=== PATIENT | male | born 1990 | race Caucasian/White ===

== ENCOUNTER 2025-06-10 11:44 | Emergency (ER) | payer BC, SELFPAY ==
[2025-06-10 11:52] VITALS: BP 158/90; PULSE 70; RESP 16; TEMP 36.9; O2SAT 98
--- NOTE | 2025-06-10 12:03 | EDNOTE_ITS ---
ED General RME/HPI General Chief complaint: Animal Bite Stated complaint: BIT BY DOG ON R) BUTTOCKS Time Seen by Provider: 06/10/25 12:01 Arrival date/time: 06/10/25 11:44 CC: Dog bite right buttock HPI patient was running as a regular runner, dog bit him in the buttock. Patient denies fever chills occurrence was approximately 30 minutes ago patient pain is 1-2 out of 10 scale. No other complaints patient is awake alert oriented. Related Data Previous Rx's ?Medication ?Instructions ?Recorded ciprofloxacin HCl 500 mg tablet 500 mg PO BID #14 tabs 04/28/19 (Cipro) hydrocodone 5 mg-acetaminophen 325 1 tab PO Q6H PRN pa in #20 tabs 04/28/19 mg tablet ([place]) amoxicillin 875 mg-potassium 1 tab PO BID #14 tabs clavulanate 125 mg tablet Allergies Allergy/AdvReac Type Severity Reaction Status Date / Time No Known Allergies Allergy Verified 06/10/25 11:47 Review of Systems Review of Systems Narrative Review of Systems: GEN: No fever, no chills, no weight loss EYES: No discharge, no visual changes, no pain HEENT: No ear pain, no congestion, no sore throat PULM: No shortness of breath, no cough, no congestion CV: No chest pain, no dyspnea on exertion, no palpitations GI: No nausea, no vomiting, no diarrhea, no pain, no constipation : No frequency, no urgency, no dysuria MUSC/SKEL: No joint pain, no back pain SKIN: No rash PSYCH: No hallucinations, no depression HEME/LYMPH: No easy bleeding or bruising tendencies NEURO: No weakness, no headache Past Medical History Past Medical History NEUROLOGIC: Negative Neurological Disorders or Seizures CARDIAC: Negative Cardiac Disorders or Congestive Heart Failure RESPIRATORY: Negative Chronic Obstructive Pulmonary Disease (COPD) GASTROINTESTINAL: Negative Gastrointestinal Disorders GENITOURINARY: Negative Genitourinary Disorders or Renal Disease MUSCULOSKELETAL: Negative Musculoskeletal Disorders ENDOCRINE: Negative Endocrine Disorders, Diabetes Mellitus Type 1 or Diabetes Mellitus Type 2 HEMATOLOGIC: Negative Blood Disorders OTHER HISTORY: Positive Chicken Pox; Negative Autoimmune Disease, Blood Transfusions or Anesthesia Reactions Family History FAMILY HISTORY: Positive Family Cardiac Disorders (FATHER) Social History SMOKING STATUS: Former smoker ED Exam Narrative Physical exam: [General: Not in any acute distress Head normocephalic HEENT: Within acceptable limits Neck is supple nontender Chest equal chest rise nontender to palpation Respiratory: Clear to auscultation no wheezes crackles or rubs CV: Rate rhythm is regular no murmurs rubs or clicks Abdomen is distended secondary to body habitus soft nontender no masses positive bowel sounds all 4 quadrants Back: No CVA tenderness no spinous process tenderness from cervical spine thoracic and lumbar spine Skin: Right buttock, there 2 partial-thickness abrasions and 2 small full- thickness abrasions without puncture wounds. No active bleeding at this time otherwise skin is intact no petechiae rash induration ulceration or crepitus Extremities: Moving all extremity against resistance cap refill less than 2 seconds neurosensory intact Neuro: Awake alert oriented x3 Glascow coma 15 no focal deficits] Course Quality Measures none Orders Category Date Time Status Dressing Care/Change NEEDED Care 06/10/25 12:03 Active Vital Signs Vital signs: Vital Signs Temperature 98.5 F 06/10/25 11:52 Pulse Rate 70 06/10/25 11:52 Respiratory Rate 16 06/10/25 11:52 Blood Pressure 158/90 H 06/10/25 11:52 Pulse Oximetry (%) 98 06/10/25 11:52 Oxygen Delivery Method Room Air 06/10/25 11:52 Discharge Plan Plan Patient Disposition: HOME (Self Care) Patient condition on transfer: Stable Prescriptions/Referrals Prescriptions/Med Rec: New amoxicillin-pot clavulanate 875-125 mg tablet 1 tab PO BID Qty: 14 0RF No Action hydrocodone-acetaminophen [[place]] 5-325 mg tablet 1 tab PO Q6H MDD 4 PRN (Reason: pain) Qty: 20 0RF ciprofloxacin HCl [Cipro] 500 mg tablet 500 mg PO BID Qty: 14 0RF Problem List Clinical Impression: Dog bite Patient/Caregiver Discharge Instructions Education Materials: ED Dog Bite Print Language: Slovenian Stand Alone Forms: Ele Award Info., Patient Portal Info Letter, Work/School Release PA/GENERAL PRODUCTION LABORER Supervising Physician PA/GENERAL PRODUCTION LABORER Supervising Physician: Saravanan sarmiento ENP [facility] Clinical Information Provided by: patient Medical Records reviewed [facility] Labs/Rad/Tests considered, not ordered None Chronic Illness/Social Conditions which may negatively complicate care or outcome(s)-explain: None or not applicable EKG EKG not done Labs Labs: none Imaging Imaging interpretation: none Medication Administration(s) none Diagnosis Differential Diagnosis ED Complaint MDM: Puncture wound dog bite animal bite
== END 2025-06-10 13:20 | disposition home or self-care (01) ==
PROVIDERS: Emergency Provider Emergency Medicine
DX: S30.810A Abrasion of lower back and pelvis, initial encounter (principal); W54.0XXA Bitten by dog, initial encounter
CPT/HCPCS: 99284

== ENCOUNTER 2025-06-11 16:49 | Emergency (ER) | payer BC, SELFPAY ==
[2025-06-11 16:55] VITALS: BP 149/90; PULSE 60; RESP 20; TEMP 36.7; O2SAT 98; BMI 24.4
--- NOTE | 2025-06-11 17:22 | PD.EDANIML ---
ED Animal Bite RME/HPI General Chief Complaint: Animal Bite Stated Complaint: BIT BY DOG; NO RECORD OF RABIES VACCINE ON DOG Time Seen by Provider: 06/11/25 16:58 Arrival date/time: 06/11/25 16:49 This is a case of 35-year-old male who had a dog bite on the left buttocks and was seen here yesterday which he was prescribed with Augmentin to prevent infection patient came back for rabies vaccine dog rabies vaccine is not up-to-date and for his tetanus shot no other concern noted Limitations: no limitations Related Data Previous Rx's ?Medication ?Instructions ?Recorded ciprofloxacin HCl 500 mg tablet 500 mg PO BID #14 tabs 04/28/19 (Cipro) hydrocodone 5 mg-acetaminophen 325 1 tab PO Q6H PRN pain #20 tabs 04/28/19 mg tablet ([place]) amoxicillin 875 mg-potassium 1 tab PO BID #14 tabs 06/10/25 clavulanate 125 mg tablet Allergies Allergy/AdvReac Type Severity Reaction Status Date / Time No Known Allergies Allergy Verified 06/11/25 16:52 Review of Systems Review of Systems Systems Reviewed: All systems reviewed, normal except as documented Constitutional Constitutional: Reports system reviewed and no additional complaints, except as documented and Reports as per HPI Cardiovascular Cardiovascular: Reports system reviewed and no additional complaints, except as documented and Reports as per HPI Respiratory Respiratory: Reports system reviewed and no additional complaints, except as documented and Reports as per HPI Gastrointestinal Gastrointestinal: Reports system reviewed and no additional complaints, except as documented and Reports as per HPI Musculoskeletal Musculoskeletal: Reports system reviewed and no additional complaints, except as documented and Reports as per HPI Neurologic Neurologic: Reports system reviewed and no additional complaints, except as documented and Reports as per HPI Past Medical History Past Medical History NEUROLOGIC: Negative Neurological Disorders or Seizures CARDIAC: Negative Cardiac Disorders or Congestive Heart Failure RESPIRATORY: Negative Chronic Obstructive Pulmonary Disease (COPD) GASTROINTESTINAL: Negative Gastrointestinal Disorders GENITOURINARY: Negative Genitourinary Disorders or Renal Disease MUSCULOSKELETAL: Negative Musculoskeletal Disorders ENDOCRINE: Negative Endocrine Disorders, Diabetes Mellitus Type 1 or Diabetes Mellitus Type 2 HEMATOLOGIC: Negative Blood Disorders OTHER HISTORY: Positive Chicken Pox; Negative Autoimmune Disease, Blood Transfusions or Anesthesia Reactions Family History FAMILY HISTORY: Positive Family Cardiac Disorders (FATHER) Social History SMOKING STATUS: Never smoker ED Exam General Limitations: Present no limitations General appearance: Present alert, in no apparent distress and other (Patient is awake alert oriented not in distress nontoxic looking well-hydrated well-nourished) Head Head exam: Present atraumatic, normocephalic and normal inspection Eye Eye exam: Present normal appearance, PERRL and EOMI ENT ENT exam: Present normal exam, normal oropharynx and mucous membranes moist Neck Neck exam: Present normal inspection, full ROM and trachea midline; Absent tenderness, meningismus or lymphadenopathy Chest Chest inspection: Present normal inspection and symmetric chest wall rise; Absent tenderness Respiratory Respiratory exam: Present normal lung sounds bilaterally; Absent respiratory distress, wheezes, stridor, accessory muscle use or prolonged expiratory phase Cardiovascular Cardiovascular exam: Present regular rate, normal rhythm and normal heart sounds; Absent bradycardia, tachycardia, irregular rhythm, systolic murmur or diastolic murmur Abdominal Exam Abdominal exam: Present soft and normal bowel sounds; Absent distention, tenderness, guarding, rebound, rigidity, diminished bowel sounds, hyperactive bowel sounds, hypoactive bowel sounds or organomegaly Extremities Exam Extremities exam: Present normal inspection and full ROM Back Exam Back exam: Present normal inspection and full ROM Neurological Exam Neurological exam: Present alert, oriented X3, CN II-XII intact, normal gait and reflexes normal; Absent motor sensory deficit Psychiatric Psychiatric exam: Present normal affect and normal mood Skin Skin exam: Present warm, dry, intact, normal color and other (Noted multiple punctured wound on the left buttocks with contusion no bleeding no abscess no cellulitis ) Course Quality Measures none Orders Category Date Time Status Rabies Immune Globulin/Thimer [Kedrab Inj] Med 06/11/25 17:04 Discontinued 1,500 iu IM X1 ONE Rabies Vaccine (Pcec)/Pf [Rabavert Rabies Vacc w/ Med 06/11/25 17:04 Discontinued Diluent] 2.5 unit IM .ONCE ONE TET,DIP/PERT AC (Adult)-Tdap [Boostrix Adult (Tdap) Med 06/11/25 17:04 Discontinued Vacc] 0.5 ml IMI .ONCE ONE Vital Signs Vital signs: Vital Signs Temperature 98.1 F 06/11/25 16:55 Pulse Rate 60 06/11/25 16:55 Respiratory Rate 20 06/11/25 16:55 Blood Pressure 149/90 H 06/11/25 16:55 Pulse Oximetry (%) 98 06/11/25 16:55 Oxygen Delivery Method Room Air 09/29/25 16:55 Oxygen saturation is 98% in room air normal Animal Bite MDM Narrative MDM Narrative:: This is a case of 35-year-old male who had a dog bite on the left buttocks and was seen here yesterday which he was prescribed with Augmentin to prevent infection patient came back for rabies vaccine dog rabies vaccine is not up-to-date and for his tetanus shot no other concern noted physical examination patient is awake alert oriented not in distress nontoxic looking well-hydrated well-nourished patient noted to have a 3 x 3 cm contusion on the left buttock with multiple punctured wound no bleeding no signs and symptoms of infection no redness no abscess no cellulitis spoke to the pharmacy regarding the rabies vaccine patient was given rabies immunoglobulin and rabies vaccine patient was also given tetanus shot patient was advised to return in the emergency room on the and for the next rabies vaccine patient will continue the Augmentin that was prescribed yesterday patient will follow-up with PCP in 2 days for reevaluation and for any signs and symptoms of infection worsening symptoms return precaution in the ER was advised Patient was discharged with comfortable condition walking with stable gait. Patient verbalized no further complains explained diagnosis and answered patient question. Patient is comfortable with the proposed management plan including the need to follow up with his/her primary care physician and any specialist if applicable Discussed patient for any urgent condition or worsening sx, He/She needed to go to emergency room immediately or call 911. Patient acknowledge the responsibility to follow up as instructed and to monitor her/his symptoms. For any persistence of the symptoms for more than 3-5 days return precaution advised. Discussed the result of the test and was given printed discharge instruction Patient data External records reviewed:: [facility] previous records Clinical information provided by:: patient Social determinants that could affect healthcare access:: none Patient has the following chronic illnesses:: None How is presenting disease/condition affected by chronic disease/condition?: no chronic disease Evaluation data The following diagnostics were reviewed and interpreted by me:: other (specify) (None) Lab and/or radiology exams considered but not ordered:: None Interpretation Summary: None Medications / Prescriptions Medications or Prescriptions considered but not ordered:: Given Medication administrations:: Medication Administration History Discontinued Medications Diphtheria/Tetanus/Acell Pertussis (Diphth,Pertuss(Acell),Tet Vac 0.5 Ml Syr- Adult) 0.5 ml IMi .ONCE ONE Stop: 06/11/25 17:05 Rabies Immune Globulin (Rabies Immune Globulin 150 Iu/Ml Vial 10ml) 1,500 iu IM X1 ONE Stop: 06/11/25 17:05 Rabies Vaccine Chick Embryo Cell (Rabies Vaccine (Pcec)/Pf 2.5 Unit/Ml Vial) 2.5 unit IM .ONCE ONE Stop: 06/11/25 17:05 Given Consultations Consultation(s) initiated? (list below): No Diagnosis Differential diagnosis animal bite: bite by animal and dog bite Most likely diagnosis given after review of the tests above:: Dog bite multiple puncture wound left buttocks with contusion Admission Indicated Admission indicated?: not indicated Explain why admission is indicated or not indicated:: Not indicated Admission Request Was there a request for admission?: No Admission Attestation Admission request attestation: Not indicated Disposition Plan Disposition Plan: Discharge Discharge Attestation Discharge Attestation: The patient and all family members were given an opportunity to ask questions and understood the discharge instructions. Discharge instructions specifically effects, indications for sooner follow up or return to the emergency department, and the expected course of current diagnosis. Patient condition: Stable Discharge Plan Plan Patient Disposition: HOME (Self Care) Patient condition on transfer: Stable Prescriptions/Referrals Prescriptions/Med Rec: No Action hydrocodone-acetaminophen [[place]] 5-325 mg tablet 1 tab PO Q6H MDD 4 PRN (Reason: pain) Qty: 20 0RF ciprofloxacin HCl [Cipro] 500 mg tablet 500 mg PO BID Qty: 14 0RF amoxicillin-pot clavulanate 875-125 mg tablet 1 tab PO BID Qty: 14 0RF Problem List Clinical Impression: Dog bite, Contusion of left buttock, Multiple puncture wounds Patient/Caregiver Discharge Instructions Education Materials: Bruises (Contusions), ED Animal Bite (General), ED Wound Care Additional Instructions: Return to the emergency room on the third day 7-day and 14-day June 14 June 18 June 25 for your next rabies vaccine continue Augmentin as prescribed by the previous provider to prevent infection finish the course of antibiotic keep the wound clean and dry worsening symptoms or any emergent concerns such as redness swelling discharge from the wound pain fever chills return to the emergency room immediately or call 911 follow-up with your primary care physician in 2 days for reevaluation and wound check keep the wound clean and dry Print Language: Singaporean Stand Alone Forms: Ele Award Info., Patient Portal Info Letter PA/GROUND SUPPORT EQUIPMENT ASSEMBLER Supervising Physician PA/GROUND SUPPORT EQUIPMENT ASSEMBLER Supervising Physician:
[2025-06-11] MEDS: DIPHTH,PERTUSS(ACELL),TET VAC 0.5 ML SYR- ADULT IMi (17:29)
[2025-06-11] MEDS: RABIES IMMUNE GLOBULIN 150 IU/ML VIAL 10ML 1500 IU IM (17:32)
[2025-06-11] MEDS: RABIES VACCINE (PCEC)/PF 2.5 UNIT/ML VIAL IM (17:33)
== END 2025-06-11 17:51 | disposition home or self-care (01) ==
PROVIDERS: Emergency Provider Family Medicine
DX: S31.823A Puncture wound without foreign body of left buttock, initial encounter (principal); S30.0XXA Contusion of lower back and pelvis, initial encounter; W54.0XXA Bitten by dog, initial encounter; Z23 Encounter for immunization
CPT/HCPCS: 90377; 90471; 90472; 90675; 90715; 96372; 99283

== ENCOUNTER 2025-06-15 10:08 | Emergency (ER) | payer BC, SELFPAY ==
[2025-06-15 10:09] VITALS: BMI 25.0
[2025-06-15 10:33] VITALS: BP 124/86; PULSE 60; RESP 18; TEMP 36.6; O2SAT 99
--- NOTE | 2025-06-15 10:42 | EDNOTE_ITS ---
ED General RME/HPI General Chief complaint: General Adult/Misc Complain Stated complaint: 2ND RABIES SHOT Time Seen by Provider: 06/15/25 10:21 Source: patient Arrival date/time: 06/15/25 10:08 35-year-old male with no known medical history presents to the emergency room for second rabies vaccination. Mode of arrival: ambulatory Limitations: no limitations Related Data Previous Rx's ?Medication ?Instructions ?Recorded ciprofloxacin HCl 500 mg tablet 500 mg PO BID #14 tabs 04/28/19 (Cipro) hydrocodone 5 mg-acetaminophen 325 1 tab PO Q6H PRN pa in #20 tabs 04/28/19 mg tablet ([place]) amoxicillin 875 mg-potassium 1 tab PO BID #14 tabs clavulanate 125 mg tablet hydrocodone 5 mg-acetaminophen 325 1 tab PO BID PRN pa in #10 tabs 06/15/25 mg tablet Allergies Allergy/AdvReac Type Severity Reaction Status Date / Time No Known Allergies Allergy Verified 06/15/25 10:11 Review of Systems Review of Systems Systems Reviewed: All systems reviewed, normal except as documented Constitutional Constitutional: Reports system reviewed and no additional complaints, except as documented, Denies fatigue, Denies fever(s), Denies headache(s) and Denies weakness Eyes Eyes: Reports system reviewed and no additional complaints, except as documented, Denies blurry vision and Denies change in vision ENT Ears, Nose, Mouth, and Throat: Reports system reviewed and no additional complaints, except as documented, Denies otalgia, Denies headache(s), Denies nasal congestion, Denies throat swelling and Denies vertigo Cardiovascular Cardiovascular: Reports system reviewed and no additional complaints, except as documented, Denies chest pain, Denies dyspnea and Denies dyspnea on exertion Respiratory Respiratory: Reports system reviewed and no additional complaints, except as documented, Denies chest congestion, Denies cough, Denies dyspnea, Denies dyspnea on exertion and Denies wheezing Gastrointestinal Gastrointestinal: Reports system reviewed and no additional complaints, except as documented, Denies abdominal pain, Denies cramping, Denies nausea and Denies vomiting Genitourinary Genitourinary: Reports system reviewed and no additional complaints, except as documented, Denies dysuria and Denies hematuria Musculoskeletal Musculoskeletal: Reports system reviewed and no additional complaints, except as documented and Denies back pain Integumentary/Breasts Skin/Breast: Reports system reviewed and no additional complaints, except as documented and Denies wounds Neurologic Neurologic: Reports system reviewed and no additional complaints, except as documented, Denies confusion, Denies headache(s), Denies lack of coordination, Denies vertigo and Denies weakness Psychiatric Psychiatric: Reports system reviewed and no additional complaints, except as documented, Denies anxiety, Denies confusion, Denies depression, Denies paranoia, Denies suicidal ideation and Denies tactile hallucinations Endocrine Endocrine: Reports system reviewed and no additional complaints, except as documented and Denies fatigue Hematologic/Lymphatic Hematologic/Lymphatic: Reports system reviewed and no additional complaints, except as documented and Denies lymphadenopathy Allergic/Immunologic Allergic/Immunologic: Reports system reviewed and no additional complaints, except as documented, Denies throat swelling, Denies urticaria and Denies wheezing Past Medical History Past Medical History NEUROLOGIC: Negative Neurological Disorders or Seizures CARDIAC: Negative Cardiac Disorders or Congestive Heart Failure RESPIRATORY: Negative Chronic Obstructive Pulmonary Disease (COPD) GASTROINTESTINAL: Negative Gastrointestinal Disorders GENITOURINARY: Negative Genitourinary Disorders or Renal Disease MUSCULOSKELETAL: Negative Musculoskeletal Disorders ENDOCRINE: Negative Endocrine Disorders, Diabetes Mellitus Type 1 or Diabetes Mellitus Type 2 HEMATOLOGIC: Negative Blood Disorders OTHER HISTORY: Positive Chicken Pox; Negative Autoimmune Disease, Blood Transfusions or Anesthesia Reactions Family History FAMILY HISTORY: Positive Family Cardiac Disorders (FATHER) Social History SMOKING STATUS: Never smoker ED Exam General Limitations: Present no limitations General appearance: Present alert and in no apparent distress Head Head exam: Present atraumatic Eye Eye exam: Present normal appearance, PERRL and EOMI ENT ENT exam: Present normal exam, normal oropharynx and mucous membranes moist Neck Neck exam: Present normal inspection, full ROM and trachea midline Chest Chest inspection: Present normal inspection and symmetric chest wall rise Respiratory Respiratory exam: Present normal lung sounds bilaterally Cardiovascular Cardiovascular exam: Present regular rate, normal rhythm and normal heart sounds Abdominal Exam Abdominal exam: Present soft and normal bowel sounds Extremities Exam Extremities exam: Present normal inspection and full ROM Back Exam Back exam: Present normal inspection and full ROM Neurological Exam Neurological exam: Present alert, oriented X3 and CN II-XII intact Psychiatric Psychiatric exam: Present normal affect and normal mood Skin Skin exam: Present warm, dry, intact and normal color Course Quality Measures none Orders Category Date Time Status Ketorolac Inj [Toradol Inj] Med 06/15/25 10:36 Discontinued 30 mg IM X1 ONE Rabies Vaccine (Pcec)/Pf [Rabavert Rabies Vacc w/ Med 06/15/25 10:36 Discontinued Diluent] 2.5 unit IM .ONCE ONE Vital Signs Vital signs: Vital Signs Temperature 98 F 06/15/25 10:33 Pulse Rate 60 06/15/25 10:33 Respiratory Rate 18 06/15/25 10:33 Blood Pressure 124/86 H 06/15/25 10:33 Pulse Oximetry (%) 99 06/15/25 10:33 Oxygen Delivery Method Room Air 06/15/25 10:33 Discharge Plan Plan Patient Disposition: HOME (Self Care) Discharge Disposition comment: Stable Prescriptions/Referrals Prescriptions/Med Rec: New hydrocodone-acetaminophen 5-325 mg tablet 1 tab PO BID MDD 10mg PRN (Reason: pain) Qty: 10 0RF No Action hydrocodone-acetaminophen [[place]] 5-325 mg tablet 1 tab PO Q6H MDD 4 PRN (Reason: pain) Qty: 20 0RF ciprofloxacin HCl [Cipro] 500 mg tablet 500 mg PO BID Qty: 14 0RF amoxicillin-pot clavulanate 875-125 mg tablet 1 tab PO BID Qty: 14 0RF Problem List Clinical Impression: Encounter for repeat administration of rabies vaccination Patient/Caregiver Discharge Instructions Additional Instructions: Please follow-up with your primary care provider in the next 24 to 40 hours For any evidence of worsening signs or symptoms return to emergency room immediately Print Language: Guinean Stand Alone Forms: [email or web address] Info., Work/School Release, Patient Portal Info Letter PA/SPECIAL EDUCATION ASSISTANT Supervising Physician PA/SPECIAL EDUCATION ASSISTANT Supervising Physician: Dr. Robbins MDM Narrative MDM hospital course (for use when minimal MDM required): 35-year-old male with no known medical history presents to the emergency room for second rabies vaccination. Patient is hemodynamically stable and in no apparent distress Patient received a second dose of the rabies vaccination with no complications Patient states he is still having a lot of pain from the puncture wounds. Pain medication was sent to his pharmacy Patient was discharged and educated to follow-up with primary care provider in the next 24 to 48 hours and return to the emergency room for any evidence of worsening signs or symptoms Clinical Information Provided by: none Medical Records reviewed None Meds/Rx considered, not ordered None Labs/Rad/Tests considered, not ordered None Chronic Illness/Social Conditions which may negatively complicate care or outcome(s)-explain: None or not applicable EKG EKG not done Labs Labs: none Medication Administration(s) Medication Administration History Discontinued Medications Ketorolac Tromethamine (Ketorolac Inj 60 Mg/2 Ml Vial) 30 mg IM X1 ONE Stop: 06/15/25 10:37 Rabies Vaccine Chick Embryo Cell (Rabies Vaccine (Pcec)/Pf 2.5 Unit/Ml Vial) 2.5 unit IM .ONCE ONE Stop: 06/15/25 10:37 Diagnosis Differential Diagnosis ED Complaint MDM: Encounter for rabies vaccination
[2025-06-15] MEDS: KETOROLAC INJ 60 MG/2 ML VIAL 30 MG IM (10:47)
[2025-06-15] MEDS: RABIES VACCINE (PCEC)/PF 2.5 UNIT/ML VIAL IM (10:48)
== END 2025-06-15 11:10 | disposition home or self-care (01) ==
LOC: SERX 10:51
PROVIDERS: Emergency Provider Family Medicine
DX: Z23 Encounter for immunization (principal)
CPT/HCPCS: 90471; 90675; 96372; 99283; J1885

== ENCOUNTER 2025-06-18 12:16 | Emergency (ER) | payer BC, SELFPAY ==
[2025-06-18 12:44] VITALS: BP 130/78; PULSE 80; RESP 18; TEMP 37; O2SAT 99
--- NOTE | 2025-06-18 12:52 | PD.EDANIML ---
ED Animal Bite RME/HPI General Chief Complaint: Animal Bite Stated Complaint: RABIES SHOT #3 Time Seen by Provider: 06/18/25 12:35 Arrival date/time: 06/18/25 12:16 This is a case of 35-year-old male with no medical history came into the emergency room for his third rabies vaccine patient had dog bite 06/11/2025 and sustained a multiple puncture wound and superficial laceration on the buttocks patient denies any pain redness swelling or discharge from the wound no other concerns noted Limitations: no limitations Related Data Previous Rx's ?Medication ?Instructions ?Recorded ciprofloxacin HCl 500 mg tablet 500 mg PO BID #14 tabs 04/28/19 (Cipro) hydrocodone 5 mg-acetaminophen 325 1 tab PO Q6H PRN pain #20 tabs 04/28/19 mg tablet ([place]) amoxicillin 875 mg-potassium 1 tab PO BID #14 tabs 06/10/25 clavulanate 125 mg tablet hydrocodone 5 mg-acetaminophen 325 1 tab PO BID PRN pain #10 tabs 06/15/25 mg tablet Allergies Allergy/AdvReac Type Severity Reaction Status Date / Time No Known Allergies Allergy Verified 06/18/25 12:18 Review of Systems Review of Systems Systems Reviewed: All systems reviewed, normal except as documented Constitutional Constitutional: Reports system reviewed and no additional complaints, except as documented and Reports as per HPI Cardiovascular Cardiovascular: Reports system reviewed and no additional complaints, except as documented and Reports as per HPI Respiratory Respiratory: Reports system reviewed and no additional complaints, except as documented and Reports as per HPI Gastrointestinal Gastrointestinal: Reports system reviewed and no additional complaints, except as documented and Reports as per HPI Integumentary/Breasts Skin/Breast: Reports system reviewed and no additional complaints, except as documented and Reports as per HPI Neurologic Neurologic: Reports system reviewed and no additional complaints, except as documented and Reports as per HPI Past Medical History Past Medical History NEUROLOGIC: Negative Neurological Disorders or Seizures CARDIAC: Negative Cardiac Disorders or Congestive Heart Failure RESPIRATORY: Negative Chronic Obstructive Pulmonary Disease (COPD) GASTROINTESTINAL: Negative Gastrointestinal Disorders GENITOURINARY: Negative Genitourinary Disorders or Renal Disease MUSCULOSKELETAL: Negative Musculoskeletal Disorders ENDOCRINE: Negative Endocrine Disorders, Diabetes Mellitus Type 1 or Diabetes Mellitus Type 2 HEMATOLOGIC: Negative Blood Disorders OTHER HISTORY: Positive Chicken Pox; Negative Autoimmune Disease, Blood Transfusions or Anesthesia Reactions Family History FAMILY HISTORY: Positive Family Cardiac Disorders (FATHER) Social History SMOKING STATUS: Never smoker ED Exam General Limitations: Present no limitations General appearance: Present alert, in no apparent distress and other (Patient is awake alert oriented not in distress nontoxic looking well-hydrated well-nourished) Head Head exam: Present atraumatic, normocephalic and normal inspection Eye Eye exam: Present normal appearance, PERRL and EOMI ENT ENT exam: Present normal exam, normal oropharynx and mucous membranes moist Neck Neck exam: Present normal inspection, full ROM and trachea midline; Absent tenderness, meningismus or lymphadenopathy Chest Chest inspection: Present normal inspection and symmetric chest wall rise; Absent tenderness Respiratory Respiratory exam: Present normal lung sounds bilaterally; Absent respiratory distress, wheezes, stridor, accessory muscle use or prolonged expiratory phase Cardiovascular Cardiovascular exam: Present regular rate, normal rhythm and normal heart sounds; Absent bradycardia, tachycardia, irregular rhythm, systolic murmur or diastolic murmur Abdominal Exam Abdominal exam: Present soft and normal bowel sounds; Absent distention, tenderness, guarding, rebound, rigidity, diminished bowel sounds, hyperactive bowel sounds, hypoactive bowel sounds or organomegaly Extremities Exam Extremities exam: Present normal inspection and full ROM Back Exam Back exam: Present normal inspection and full ROM; Absent tenderness, CVA tenderness (R), CVA tenderness (L), muscle spasm, paraspinal tenderness, vertebral tenderness, sciatic notch tenderness (R), sciatic notch tenderness (L), straight leg raise (R) or straight leg raise (L) Neurological Exam Neurological exam: Present alert, oriented X3, CN II-XII intact, normal gait and reflexes normal; Absent motor sensory deficit Psychiatric Psychiatric exam: Present normal affect, normal mood and other Skin Skin exam: Present warm, dry, intact, normal color and other (noted healead multiple laceration superficial and pucntured wound no abscess no cellulitis healing well) Course Quality Measures none Orders Category Date Time Status Rabies Vaccine (Pcec)/Pf [Rabavert Rabies Vacc w/ Med 06/18/25 12:46 Discontinued Diluent] 2.5 unit IM .ONCE ONE Vital Signs Vital signs: Vital Signs Temperature 98.6 F 06/18/25 12:44 Pulse Rate 80 06/18/25 12:44 Respiratory Rate 18 06/18/25 12:44 Blood Pressure 130/78 06/18/25 12:44 Pulse Oximetry (%) 99 06/18/25 12:44 Oxygen Delivery Method Room Air 06/18/25 12:44 Oxygen saturation 99% in room air Animal Bite MDM Narrative MDM Narrative:: This is a case of 35-year-old male with no medical history came into the emergency room for his third rabies vaccine patient had dog bite 06/11/2025 and sustained a multiple puncture wound and superficial laceration on the buttocks patient denies any pain redness swelling or discharge from the wound no other concerns noted physical examination patient is awake alert oriented not in distress nontoxic looking well-hydrated well-nourished noted a multiple healed puncture wound and superficial laceration on the backpacks no abscess no cellulitis no infection noted patient was given rabies vaccine here in the emergency room with no reaction noted patient will return for the next rabies vaccine for any worsening symptoms or any emergent concerns she is well informed to return in the emergency room immediately or call 911 he will also follow-up with PCP in 2 days for reevaluation and complete the course of antibiotic Patient was discharged with comfortable condition walking with stable gait. Patient verbalized no further complains explained diagnosis and answered patient question. Patient is comfortable with the proposed management plan including the need to follow up with his/her primary care physician and any specialist if applicable Discussed patient for any urgent condition or worsening sx, He/She needed to go to emergency room immediately or call 911. Patient acknowledge the responsibility to follow up as instructed and to monitor her/his symptoms. For any persistence of the symptoms for more than 3-5 days return precaution advised. Discussed the result of the test and was given printed discharge instruction Patient data External records reviewed:: [facility] previous records Clinical information provided by:: patient Social determinants that could affect healthcare access:: none Patient has the following chronic illnesses:: None How is presenting disease/condition affected by chronic disease/condition?: no chronic disease Evaluation data The following diagnostics were reviewed and interpreted by me:: other (specify) Lab and/or radiology exams considered but not ordered:: None Interpretation Summary: None Medications / Prescriptions Medications or Prescriptions considered but not ordered:: Given Medication administrations:: Medication Administration History Discontinued Medications Rabies Vaccine Chick Embryo Cell (Rabies Vaccine (Pcec)/Pf 2.5 Unit/Ml Vial) 2.5 unit IM .ONCE ONE Stop: 06/18/25 12:47 Last Admin: 06/18/25 12:56 Dose: 2.5 unit Documented By: OA Given Consultations Consultation(s) initiated? (list below): No Diagnosis Differential diagnosis animal bite: dog bite Most likely diagnosis given after review of the tests above:: Rabies vaccine administration Admission Indicated Admission indicated?: not indicated Explain why admission is indicated or not indicated:: Not indicated Admission Request Was there a request for admission?: No Disposition Plan Disposition Plan: Discharge Discharge Attestation Discharge Attestation: The patient and all family members were given an opportunity to ask questions and understood the discharge instructions. Discharge instructions specifically effects, indications for sooner follow up or return to the emergency department, and the expected course of current diagnosis. Patient condition: Stable Discharge Plan Plan Patient Disposition: HOME (Self Care) Patient condition on transfer: Stable Prescriptions/Referrals Prescriptions/Med Rec: No Action hydrocodone-acetaminophen [[place]] 5-325 mg tablet 1 tab PO Q6H MDD 4 PRN (Reason: pain) Qty: 20 0RF ciprofloxacin HCl [Cipro] 500 mg tablet 500 mg PO BID Qty: 14 0RF amoxicillin-pot clavulanate 875-125 mg tablet 1 tab PO BID Qty: 14 0RF hydrocodone-acetaminophen 5-325 mg tablet 1 tab PO BID MDD 10mg PRN (Reason: pain) Qty: 10 0RF Problem List Clinical Impression: Encounter for repeat administration of rabies vaccination Patient/Caregiver Discharge Instructions Education Materials: What Vaccines Should You and Your Family Have Additional Instructions: Follow-up with your primary care physician in 2 days for reevaluation return here in the emergency room for your next rabies vaccine worsening symptoms or any signs and symptoms of infection return to the emergency room immediately or call 911 finish the course of antibiotic keep the area clean and dry Print Language: Bahraini Stand Alone Forms: Ele Award Info., Patient Portal Info Letter PA/NURSING DEPARTMENT CHAIRPERSON Supervising Physician PA/NURSING DEPARTMENT CHAIRPERSON Supervising Physician: Dr. cristina
[2025-06-18] MEDS: RABIES VACCINE (PCEC)/PF 2.5 UNIT/ML VIAL IM (12:56)
[2025-06-18 14:50] VITALS: TEMP 37.7
== END 2025-06-18 14:50 | disposition home or self-care (01) ==
LOC: SERX 13:01
PROVIDERS: Emergency Provider Emergency Medicine; PCP Family Medicine
DX: S31.801A Laceration without foreign body of unspecified buttock, initial encounter (principal); W54.0XXA Bitten by dog, initial encounter; Z20.3 Contact with and (suspected) exposure to rabies; Z23 Encounter for immunization
CPT/HCPCS: 90471; 90675; 99281

== ENCOUNTER 2025-06-25 14:33 | Emergency (ER) | payer BC, SELFPAY ==
[2025-06-25 14:56] VITALS: BP 124/75; PULSE 60; RESP 18; TEMP 36.8; O2SAT 98
[2025-06-25 14:58] VITALS: BMI 25.0
[2025-06-25] MEDS: RABIES VACCINE (PCEC)/PF 2.5 UNIT/ML VIAL IM (15:17)
--- NOTE | 2025-06-25 15:27 | PD.EDWOUND ---
ED Wound/Laceration-RME/HPI General Chief Complaint: Wound Recheck / Suture Removal Stated Complaint: Rabies shot 4th round Time Seen by Provider: 06/25/25 14:47 Source: patient Arrival date/time: 06/25/25 14:33 35-year-old male with no known medical history presents to the emergency room with a chief complaint of needing his fourth rabies vaccination. Mode of arrival: ambulatory Limitations: no limitations Related Data Previous Rx's ?Medication ?Instructions ?Recorded ciprofloxacin HCl 500 mg tablet 500 mg PO BID #14 tabs 04/28/19 (Cipro) hydrocodone 5 mg-acetaminophen 325 1 tab PO Q6H PRN pain #20 tabs 04/28/19 mg tablet ([place]) amoxicillin 875 mg-potassium 1 tab PO BID #14 tabs 06/10/25 clavulanate 125 mg tablet hydrocodone 5 mg-acetaminophen 325 1 tab PO BID PRN pain #10 tabs 06/15/25 mg tablet Allergies Allergy/AdvReac Type Severity Reaction Status Date / Time No Known Allergies Allergy Verified 06/18/25 12:18 Review of Systems Review of Systems Systems Reviewed: All systems reviewed, normal except as documented Constitutional Constitutional: Reports system reviewed and no additional complaints, except as documented, Denies fatigue, Denies fever(s), Denies headache(s) and Denies weakness Eyes Eyes: Reports system reviewed and no additional complaints, except as documented, Denies blurry vision and Denies change in vision ENT Ears, Nose, Mouth, and Throat: Reports system reviewed and no additional complaints, except as documented, Denies otalgia, Denies headache(s), Denies nasal congestion, Denies throat swelling and Denies vertigo Cardiovascular Cardiovascular: Reports system reviewed and no additional complaints, except as documented, Denies chest pain, Denies dyspnea and Denies dyspnea on exertion Respiratory Respiratory: Reports system reviewed and no additional complaints, except as documented, Denies chest congestion, Denies cough, Denies dyspnea, Denies dyspnea on exertion and Denies wheezing Gastrointestinal Gastrointestinal: Reports system reviewed and no additional complaints, except as documented, Denies abdominal pain, Denies cramping, Denies nausea and Denies vomiting Genitourinary Genitourinary: Reports system reviewed and no additional complaints, except as documented, Denies dysuria and Denies hematuria Musculoskeletal Musculoskeletal: Reports system reviewed and no additional complaints, except as documented and Denies back pain Integumentary/Breasts Skin/Breast: Reports system reviewed and no additional complaints, except as documented and Denies wounds Neurologic Neurologic: Reports system reviewed and no additional complaints, except as documented, Denies confusion, Denies headache(s), Denies lack of coordination, Denies vertigo and Denies weakness Psychiatric Psychiatric: Reports system reviewed and no additional complaints, except as documented, Denies anxiety, Denies confusion, Denies depression, Denies paranoia, Denies suicidal ideation and Denies tactile hallucinations Endocrine Endocrine: Reports system reviewed and no additional complaints, except as documented and Denies fatigue Hematologic/Lymphatic Hematologic/Lymphatic: Reports system reviewed and no additional complaints, except as documented and Denies lymphadenopathy Allergic/Immunologic Allergic/Immunologic: Reports system reviewed and no additional complaints, except as documented, Denies throat swelling, Denies urticaria and Denies wheezing ED Exam General Limitations: Present no limitations General appearance: Present alert and in no apparent distress Head Head exam: Present atraumatic, normocephalic and normal inspection Eye Eye exam: Present normal appearance, PERRL and EOMI ENT ENT exam: Present normal exam, normal oropharynx and mucous membranes moist Neck Neck exam: Present normal inspection, full ROM and trachea midline Chest Chest inspection: Present normal inspection and symmetric chest wall rise Respiratory Respiratory exam: Present normal lung sounds bilaterally Cardiovascular Cardiovascular exam: Present regular rate, normal rhythm and normal heart sounds Abdominal Exam Abdominal exam: Present soft and normal bowel sounds Extremities Exam Extremities exam: Present normal inspection and full ROM Back Exam Back exam: Present normal inspection and full ROM Neurological Exam Neurological exam: Present alert, oriented X3 and CN II-XII intact Psychiatric Psychiatric exam: Present normal affect and normal mood Skin Skin exam: Present warm, dry, intact and normal color Course Quality Measures none Orders Category Date Time Status Rabies Vaccine (Pcec)/Pf [Rabavert Rabies Vacc w/ Med 06/25/25 15:05 Discontinued Diluent] 2.5 unit IM .ONCE ONE Vital Signs Vital signs: Vital Signs Temperature 98.2 F 06/25/25 14:56 Pulse Rate 60 06/25/25 14:56 Respiratory Rate 18 06/25/25 14:56 Blood Pressure 124/75 06/25/25 14:56 Pulse Oximetry (%) 98 06/25/25 14:56 Oxygen Delivery Method Room Air 06/25/25 14:56 Wound / Laceration MDM Narrative MDM Narrative:: 35-year-old male with no known medical history presents to the emergency room with a chief complaint of needing his fourth rabies vaccination. Patient is hemodynamically stable and in no apparent distress The fourth dose of his rabies vaccination was given with no complications Patient was discharged and educated to follow-up with primary care provider in the next 24 to 48 hours and return to the emergency room for any evidence of worsening signs or symptoms Patient data External records reviewed:: [facility] previous records Clinical information provided by:: patient Social determinants that could affect healthcare access:: none Patient has the following chronic illnesses:: No chronic illness How is presenting disease/condition affected by chronic disease/condition?: no chronic disease Evaluation data The following diagnostics were reviewed and interpreted by me:: lab results and radiology exam(s) Lab and/or radiology exams considered but not ordered:: Labs and radiology exams considered and ordered Interpretation Summary: N/A Medications / Prescriptions Medications or Prescriptions considered but not ordered:: Medication given Medication administrations:: Medication Administration History Discontinued Medications Rabies Vaccine Chick Embryo Cell (Rabies Vaccine (Pcec)/Pf 2.5 Unit/Ml Vial) 2.5 unit IM .ONCE ONE Stop: 06/25/25 15:06 Last Admin: 06/25/25 15:17 Dose: 2.5 unit Documented By: BRIA Medication given Consultations Consultation(s) initiated? (list below): No Diagnosis Wound Differential Diagnosis: laceration, abscess and other (Encounter for repeat administration of rabies vaccination) Most likely diagnosis given after review of the tests above:: Encounter for rabies vaccination Admission Indicated Admission indicated?: not indicated Admission Request Was there a request for admission?: No Disposition Plan Disposition Plan: Discharge Discharge Attestation Discharge Attestation: The patient and all family members were given an opportunity to ask questions and understood the discharge instructions. Discharge instructions specifically effects, indications for sooner follow up or return to the emergency department, and the expected course of current diagnosis. Patient condition: Stable Discharge Plan Plan Patient Disposition: HOME (Self Care) Discharge Disposition comment: Stable Prescriptions/Referrals Prescriptions/Med Rec: No Action hydrocodone-acetaminophen [[place]] 5-325 mg tablet 1 tab PO Q6H MDD 4 PRN (Reason: pain) Qty: 20 0RF ciprofloxacin HCl [Cipro] 500 mg tablet 500 mg PO BID Qty: 14 0RF amoxicillin-pot clavulanate 875-125 mg tablet 1 tab PO BID Qty: 14 0RF hydrocodone-acetaminophen 5-325 mg tablet 1 tab PO BID MDD 10mg PRN (Reason: pain) Qty: 10 0RF Problem List Clinical Impression: Encounter for repeat administration of rabies vaccination Patient/Caregiver Discharge Instructions Additional Instructions: Please follow-up with your primary care provider in the next 24 to 48 hours For any evidence of worsening signs or symptoms return the emergency room immediately Print Language: Icelandic Stand Alone Forms: Ele Award Info., Work/School Release, Patient Portal Info Letter PA/SPEECH LANGUAGE PATHOLOGIST ASSISTANT Supervising Physician PA/SPEECH LANGUAGE PATHOLOGIST ASSISTANT Supervising Physician: Dr. Robbins
== END 2025-06-25 15:37 | disposition home or self-care (01) ==
LOC: SERX 15:25
PROVIDERS: Emergency Provider Nurse Practitioner Family
DX: Z48.02 Encounter for removal of sutures (principal)
CPT/HCPCS: 90471; 90675; 99281